=== PATIENT | female | born 1990 | race Caucasian/White ===

== ENCOUNTER 2022-03-30 15:15 | Outpatient (CLI) | payer OTHER, SELFPAY ==
[2022-03-30 17:13] LABS: Cholesterol* 134 mg/dL (90-199); HDL Cholesterol* 55 mg/dL (>=50); LDL Cholesterol Calculated 66 mg/dL (<100); Triglycerides* 65 mg/dL (40-149)
[2022-03-30 17:54] LABS: HCG Quantitative* < 2.39 mIU/mL
[2022-04-01 13:30] LABS: Estradiol Premenol Female 167 pg/mL
[2022-04-01 17:33] LABS: Prolactin 10.7 ng/mL (2.8-29.2)
[2022-04-01 19:19] LABS: Follicle Stimulating Hormone 2.1 IU/L; Luteinizing Hormone, Serum 6.9 IU/L
[2022-04-02 20:04] LABS: Anti-Mullerian Hormone 6.719 ng/mL (0.176-11.705)
[2022-04-06 21:28] LABS: 17-Hydroxyprogesterone HPLC 94.73 ng/dL (<=206.00); Progesterone, HPLC-MS/MS 7.46 ng/mL
[2022-04-07 13:10] LABS: Sex Hormone Binding Globulin 65 nmol/L (25-122); Testosterone Bioavailable 4.5 ng/dL (4.1-25.5); Testosterone, Free LC-MS/MS 1.6 pg/mL (1.3-9.2); Testosterone, LC-MS/MS 15 ng/dL (9-55)
== END 2022-03-30 15:16 | disposition home or self-care (01) ==
PROVIDERS: Visit Provider Obstetrics & Gynecology
DX: N93.9 Abnormal uterine and vaginal bleeding, unspecified (principal)
CPT/HCPCS: 80061; 82670; 83001; 83002; 83498; 83520; 84144; 84146; 84270; 84402; 84403; 84443; 84702

== ENCOUNTER 2023-05-24 09:45 | Outpatient (CLI) | payer OTHER, SELFPAY | END 2023-05-24 09:46 | disposition home or self-care (01) | PROVIDERS: Visit Provider Advanced Practice Midwife | DX: Z36.85 Encounter for antenatal screening for Streptococcus B (principal); Z34.83 Encounter for supervision of other normal pregnancy, third trimester | CPT/HCPCS: 87081; 87653 ==

== ENCOUNTER 2023-06-01 12:47 | Outpatient (CLI) | payer OTHER, SELFPAY ==
--- NOTE | 2023-06-01 12:52 | CRLHL7_ITS ---
For Patients: As a result of the Century Cures Act, medical imaging exams and procedure reports are released immediately into your electronic medical record. You may view this report before your referring provider. If you have questions, please contact your health care provider. INDICATION: Third trimester scan, evaluate growth. COMPARISON: none TECHNIQUE: Real time hatch scale imaging of the fetus was performed. FINDINGS: Sonographic imaging demonstrates a single living intrauterine gestation. Fetus demonstrates a regular cardiac rate of 147 beats per minute. Fetus has a vertex position. The placenta lies right anterior. Amniotic fluid volume appears normal and there is a single deepest vertical pocket: 7.7 cm. The estimated weight is 3530gm which lies at the 90th %. BPD 59th percentile. HC 78th percentile. AC greater than 97th percentile. FL 69th percentile. The HC/AC ratio measures 0.97 range (0.89-1.06). IMPRESSION: Sonographic gestational age 38 weeks 2 days and sonographic due date 06/13/2023. Sonographic age 9 days ahead of the clinical age. Estimated weight 90th percentile. Abdominal circumference greater than 97th percentile. Dictated by Nelson Jaramlilo MD @ 06/03/2023 2:44:06 PM (Electronically Signed)
== END 2023-06-01 12:48 | disposition home or self-care (01) ==
LOC: US 12:48
PROVIDERS: Visit Provider Advanced Practice Midwife
DX: Z34.93 Encounter for supervision of normal pregnancy, unspecified, third trimester (principal); Z3A.38 38 weeks gestation of pregnancy
CPT/HCPCS: 76816

== ENCOUNTER 2023-06-17 09:30 | Outpatient (CLI) | payer OTHER, SELFPAY ==
[2023-06-17 09:41] VITALS: PULSE 74; O2SAT 100
[2023-06-17 09:43] VITALS: BP 119/69; PULSE 74; TEMP 36.6
[2023-06-17 10:09] LABS: Amnisure Rom* Negative
--- NOTE | 2023-06-17 12:08 | PC.OBNST ---
NST Note NST Note Start: 06/17/23 09:37 Freq: ONCE Status: Complete Protocol: Document 06/17/23 10:49 RESTORATIONIST (Rec: 06/17/23 10:50 RESTORATIONIST [id number]) NST Note 4 Para (# of births) 2 EDC 06/17/23 Gestational Age In Weeks & Days 40 Weeks & 0 Days Patient Presented with Complaint(s) of Leaking fluid Reactive Yes Appropriate for Gestational Age Yes DOMINGA Blanco Date 06/17/23 Reactive Yes Appropriate for Gestational Age Yes DOMINGA Malik Date 06/17/23 OB NST charge Yes Complete NST Note via Write Note Yes The provider's electronic signature indicates the NST is reactive/appropriate for gestational age. *Note to provider: If an addendum is required, open the patient's chart and click on the note under the Nurse/Allied Health tab.
== END 2023-06-17 10:38 | disposition home or self-care (01) ==
LOC: OB 09:34 → OB OUT 09:34
PROVIDERS: Visit Provider Advanced Practice Midwife
DX: O47.1 False labor at or after 37 completed weeks of gestation (principal); Z3A.40 40 weeks gestation of pregnancy
CPT/HCPCS: 59025; 84112; 99213

== ENCOUNTER 2023-06-19 20:17 | Inpatient (IN) | payer OTHER, SELFPAY ==
[2023-06-19] VITALS (29 sets, daily range): BP systolic 106–138; BP diastolic 55–71; PULSE 57–98; TEMP 36.8; O2SAT 87–100; BMI 27.4
--- NOTE | 2023-06-19 21:04 | W.PM.LDBA ---
Subjective History of Present Illness Date Seen: 06/19/23 Narrative: Patient is being admitted to Labor and Delivery for active labor at term. She is a 32 year old at 39.4 weeks gestation. Her full history and physical was dictated by Radhika Ricci CNM on 05/31/23. Please see this for details. She has been genet since last night. The increase in intensity and frequency since she was seen in the clinic earlier today. On admit she was found to be 5-6/90/-1 per RN exam. She was admitted. She is using hypno birthing and coping well but considering an epidural due to nasal congestion. She denies leaking fluids and is appreciating good movement. Specific Issues/Plans : Nicho Transfer of care at 33 weeks from [facility] H&P done by Radhika Ricci CNM on 05/31/23 1. Covid in taking ASA Growth US at [facility]: 05/03/2023 EFW 76%ile, [facility] normal Growth US at 36 weeks: 90.4% 2. Hx of anxiety felt this was related to delivery during Covid shut down no meds, did do therapy at that time 3. Hypotension in 4. Measuring small for dates at 36.6 growth US ordered: 90.4% OB Labs: ? Blood type: AB+, antibody screen negative. ? Hgb: 12.9 (nob), 12.0 (28wks) ? Platelets: 238 (nob), 156 (28wks) ? Rubella: Immune ? Varicella: none in records, pt states previous illness RPR: non-reactive ? HBsAg: non-reactive ? Hep C: negative HIV: negative ? UC: negative GC/Chlamydia: negative/negative ? Pap (08/31/2022): NILM/-HPV ? Genetic screening: [id number] negative, female 1hr gtt: 100 ? ? IMAGING: ? 1st trimester: 7 wks 5 days, TERENCE 06/22/2023 ? Anatomy scan: Normal anatomy scan at 20.5 weeks ?Others: Growth US 05/03/23 EFW 76% TDAP: 04/02/2023 Flu Vaccine: 05/04/23 RSV: 05/18/2023 Covid Vaccine: Declines OB - Problem Based A/P Additional Plan (1) Pain during labor: Status: Acute (2) 39 weeks gestation of : Status: Acute Plan ASSESSMENT:? at 39.4 weeks gestation? GBS negative? Uncomplicated ? Active labor at term ?? PLAN:? 1. Considering water . Consent signed. Hep C negative.? 2. Candidate for analgesia of choice. Was planning unmedicated but now considering epidural.? 3. Anticipate ? 4. Expectant management at this time.? 5.0Insert IV for potential epidural analgesia per patient preference. 6. Intermittent auscultation. Switch to continuous monitoring if an epidural is placed. monitoring plan? Delivery/Labor/Induction Plan Plan: expectant management OB Result Labs Blood Type: AB (+) positive Rubella: immune RPR/VDLR: nonreactive GBS Status: negative HBsAG: negative OB Exam Physical Exam Vital signs: Pulse BP 59 L 121/71 06/19/23 20:00 06/19/23 20:00 Narrative: Psychiatric:? Alert and oriented x3? HEENT:? Normocephalic, atraumatic? Neck:? Supple without adenopathy or thyromegaly? Lungs:? Clear to auscultation bilaterally? Heart:? Regular rate and rhythm, no murmur, rub or gallop? Abdomen:? Soft, nontender, and gravid? Extremities:? No edema or erythema? Detailed Labor and Delivery Exam Patient Gravid: Yes Dilation (cm): 5 (5-6 per RN exam) Effacement (%): 90 Contraction Frequency: 2-7 Tachysystole: No Fetus (Single) Station: -1 Amniotic Membrane Status: intact Heart Rate Baseline: 120 Monitor Accelerations: Present Monitor Decelerations: None Nursing Home Variability: Moderate (6-25)
[2023-06-19] MEDS: LACTATED RINGERS 1000 ML 1,000 ML IV ×2 (21:06→22:09)
--- NOTE | 2023-06-19 22:26 | P.ANBPRC_ITS ---
PFSH PFS Medical History anxiety ?O99.345 - Other mental disorders complicating the puerperium (ICD-10) ?F41.8 - Other specified anxiety disorders (ICD-10) Abnormal uterine bleeding ?N93.9 - Abnormal uterine and vaginal bleeding, unspecified (ICD-10) Missed ab ?O02.1 - Missed (ICD-10) Surgical History History of dilation and curettage ?Z98.890 - Other specified postprocedural states (ICD-10) Family History Sister Diabetes Social History Narrative: SOCIAL? ? Education: Masters? ? Work: stay at home? ? Partner: Nicho, , Professor at [employer]? ? Lives with: Nicho, Gina-5, Kandi-3? ? Pets: no? ? Abuse: Denies past Safe at home with current partner ? ? ? Special Diet: Denies? ? Ok with a blood transfusion: yes? ? Culture or gnosticism beliefs: denies? RISK FACTORS? ? Exercise Times/wk: 3 times a week, program? ? Depression/Anxiety: PP? ? Previous Treatments NA ? Therapy yes, Covid during lat contributed FERNANDA: 2 PHQ 9: 3? ? Seat Belt Use: Routinely ? Smoking: Denies past/present? ? Alcohol/day: Denies while , when not one drink a week Caffeine: one cup coffee a day? ? Drug Use: Denies past/present? What is your current living situation?: I presently have a place to live Problems where you live: lead paint or pipes In the past 12 months, utilities in danger of being shut off: no In past 12 months, lack of transportation kept you from medical appts, meetings, work, or getting things needed for daily living: no In the past 12 mos, have been you worried that your food would run out before you had money to buy more?: never true In the past 12 mos, the food you bought just didn't last and you didn't have money to buy more?: never true Smoking Status: Never smoker How often does anyone, including family, friends and others, physically hurt you : never How often does anyone, including family, friends and others, insult or talk down to you: never How often does anyone, including family, friends and others, threaten you with harm: never How often does anyone, including family, friends and others, scream or curse at you: never Little interest or pleasure in doing things: not at all Feeling down, depressed, or hopeless: not at all Meds Home Medications and Allergies Home Medications Medication Instructions Recorded Confirmed Type docosahexaenoic acid 200 mg 200 mg PO DAILY PRN 05/04/23 06/19/23 History capsule ( DHA) magnesium 250 mg tablet 250 mg PO QDAY 05/04/23 06/19/23 History Allergies Allergy/AdvReac Type Severity Reaction Status Date / Time latex AdvReac Intermediate Verified 06/19/23 19:52 Penicillin AdvReac Intermediate Hives Uncoded 06/19/23 13:56 Results Vital Signs Vital Signs: Last Vital Signs Pulse 69 06/19/23 22:25 BP 112/55 L 06/19/23 22:25 Pulse Ox 100 06/19/23 22:19 Weight: 77.111 kg Height: 167.64 cm Anesthesia Procedures Intrathecal Patient Location: OB Start Time: 22:15 Stop Time: 22:26 Start Date: 06/19/23 Stop Date: 06/19/23 Reason for Block: procedure for pain Patient Position: sitting Performed By: Deangelo Felix Preanesthetic Checklist: IV checked, risks and benefits discussed, monitors and equipment checked, pre-op evaluation, timeout performed and anesthesia consent Prep: chlorhexidine gluconate Monitoring: blood pressure monitoring, continuous pulse oximetry and heart rate Approach: midline Vertebral Space: lumbar (1-5) Needle Type: Pencan Injection Technique: single-shot Needle gauge: 25 Needle Length (cm): 10 cm
[2023-06-19] MEDS: fentaNYL 100 MCG/2 ML inj 25 MCG INTRATHECA (22:29)
[2023-06-19] MEDS: OXYTOCIN 30 unit/500 ML in NS 30 UNIT/500 ML BAG 300 UNIT IVPB (23:02)
--- NOTE | 2023-06-19 23:30 | W.PM.VAGDE_ITS ---
OB Procedure Vag Delivery Mother Details Mother Details: The patient is a 32 year-old, 4, Para 2, admitted on 06/19/23 at 39.4 Days gestation. : 4 Para: 3 Weeks Gestation: 39.4 Admission Date: 06/19/23 Additional Details Amniotic Membrane Status: SROM Amniotic Membrane Rupture Date: 06/19/23 Amniotic Membrane Rupture Time: 22:31 Amniotic Membrane Fluid Description: Clear Analgesia/Anesthesia Type: Intrathecal Waterbirth: No Pitcoin: Yes ([facility] only) Intrapartal Events: None Labor Onset: 20:15 Complete: 22:31 Pushin:45 Heart: heart tones during second stage were category 2. Baseline 120, + accels, moderate variability. There was a decel with pushing for about 7 minutes until delivery to the 80's with increases to the 90-100's. There was very rapid descent of the fetus after pushing began until delivery. Position changes and attempts to relieve pressure on the head were attempted with some success. Delivery Details Delivery Date: 06/19/23 Delivery Time: 22:59 Route of delivery: Infant Gender: Female Infant Viability: Alive; Heart Rate Present Position at Delivery: OA Delivery Details: Patient was admitted for active labor and progressed normally. SROM noted at 2231 with clear fluid. Patient was complete at 2231 and pushing at 2245. of a viable female at 2259 in a left tilt in the bed. Vertex delivered OA. No nuchal cord or shoulder. Body delivered easily and without incident. p assed to mothers abdomen with a vigorous cry. Cord was clamped and cut at > 5 minutes. APGARS were 8 at one minute and 9 at five minutes respectively. Mouth was bulb suctioned. Intact placenta with a 3 vessel cord delivered spontaneously at 2306. Fundus firm. 1st degree identified and repaired in typical fashion. A discussion was had about wether or not to repair the laceration but it was oozing some blood so the decision was made to repair. QBL 250 cc. Mother and baby stable; mother plans to breastfeed. weight pending.? 1 Minute Interval Total Score: 8 5 Minute Interval Total Score: 9 Additional Details Shoulder Dystocia: No Placenta Delivery Time: 23:06 Placental Delivery Description: Spontaneous Delivery repair: Vicryl Procedure Done: Global Blood Loss: 250 Laceration: Perineal - 1st Degree Episiotomy Description: None Blood Loss Measurement Type: QBL Bakri Used: No Sponge/Need Count Correct: Yes Cord Vessel Description: 3 Vessels Event Summary Status: Mother and were stable after delivery. Disposition: floor
[2023-06-20] VITALS (11 sets, daily range): BP systolic 103–126; BP diastolic 57–71; PULSE 57–80; RESP 16–18; TEMP 36.5–36.7; O2SAT 95–97
--- NOTE | 2023-06-20 01:01 | PC.NURSE ---
Center telephone call greater than 37 weeks Date of call: [06/19/23] Time of call: [2006] Name of person calling: [Nicho Kelly (patient's )] Best phone # to reach you at: [] patient: G: [4] P: [2] EDC: [06/22/23] Gestational age: [39.4] weeks Provider: [Nohemy Norwood] Reason for calling (patient's words): [I have been timing my wifes contractions on an shakeel and they have been about 4.5 min a part and lasting for about a minute for the last hour. I am wondering if we should come in?] Instructed patient to come to center for further evaluation. If patient is calling with the following complaints, instructed to come to Center for evaluation: Feels like water broke: [no] Regular contractions that are 5 min apart: [yes] Bleeding that is bright red and similar to a menstrual period: [no] Decreased movement: [no] Temp >100.4: [no] Patient has a sense that something doesn't feel right: [no] Is patient having contractions: [no] Reviewed Signs of Labor: Uterine tightening or cramping that occurs at regular intervals. These typically occur at shorter and shorter intervals and may increase in intensity with time. Unlike Blencoe-Farris contractions, changes in activity should not make these symptoms go away. With true labor, the time between contractions will gradually shorten and the intensity gradually increases. Typical recommendation is coming to the hospital when contractions occur every 5 minutes or less and last for 60 seconds or more for 1 hour. If patient chooses to stay home, patient given comfort instructions and informed if symptoms stay the same or are worse after 1 hour come to Center. Comfort measures: Lie on left side, reset, drink bottle or large cup of water, monitor contractions for 1 hour. Patient verbalized understanding?: [yes] Is patient coming for evaluation?: [yes] Telephone conversation guided by approved policy and flow chart, Telephone Calls From Patient's, approved at [facility] perinatology Committee February 2023.
[2023-06-20] MEDS: IBUPROFEN 600 MG TABLET PO ×3 (01:46→14:54)
[2023-06-20] MEDS: ACETAMINOPHEN 500 MG TABLET 1000 MG PO ×3 (06:29→19:36)
--- NOTE | 2023-06-20 08:01 | PM.OBPNVD1 ---
OB - PN:Subj Subjective Time Seen by Provider: 08:01 Date Seen: 06/20/23 Interval history: Sherry is a 32 y.o. who was admitted to L & D for labor.? She had an uncomplicated NVD.? ? ? Narrative: The patient feels well.? The pain is well controlled with current medications.? She has no new complaints.? She is breast feeding and reports things are going well, though the baby is a little sleepy.? the patient has done well.? Vitals have been stable.? She has remained afebrile.? Has a good appetite, is tolerating a general diet.? She is voiding without difficulty.? She is not yet passing gas and has not had a bowel movement.? She is ambulating and denies any dizziness.? Has Small amount of rubra lochia.? OB - PN: Obj Exam Physical Exam: Vital signs: Temp Pulse Resp BP Pulse Ox O2 Del Method 97.8 F 72 16 116/70 95 Room Air 06/20/23 03:22 06/20/23 03:22 06/20/23 03:22 06/20/23 03:22 06/20/23 03:22 06/20/23 03:22 Narrative: GENERAL APPEARANCE:? normal affect, alert, no distress? MOOD:? appropriate? HEENT: normocephalic, neck supple, full ROM? CHEST:? Symmetrical chest wall movement.? Normal respiratory effort.? Clear to auscultation ? HEART:? regular rate and rhythm? ABDOMEN:? soft, non-tender. Uterine fundus is firm, at Umbilicus, Midline and is appropriate for the stage of recovery.? Bowel sounds present.? PERINEUM:? mild edema of the perineum, there is a 1st degree laceration that is healing well.? EXTREMITIES:? normal and trace edema? OB - PN: A/P Delivery Assessment and Plan (1) NVD (normal vaginal delivery): Status: Acute (2) state: Status: Acute (3) Lactating mother: Status: Acute Plan day: 1 Plan: routine care Comments: G 4 P 3 status post uncomplicated NVD? ?? 1.? Continue route PP cares? 2.? .? May see if desired? 3.? Anticipate discharge home tomorrow?
[2023-06-20] MEDS: DOCUSATE SODIUM 100 MG CAPSULE PO (08:47)
[2023-06-21 01:37] VITALS: BP 109/70; PULSE 67; RESP 16; TEMP 36.6; O2SAT 96
[2023-06-21] MEDS: IBUPROFEN 600 MG TABLET PO ×2 (01:41→09:39)
--- NOTE | 2023-06-21 07:31 | PM.OBDSVD1 ---
DS: Providers Provider Date Seen: 06/21/23 Date of admission: 06/19/23 20:17 Primary care physician: Not a Local Provider Admitting Clinician: Nohemy Norwood CNM Attending Physician on discharge: Toyin Miranda CNM DS: Diagnosis Discharge Diagnosis (1) care and examination immediately after delivery: Status: Acute (2) Lactating mother: Status: Acute Exam Narrative: Exam Narrative: GENERAL APPEARANCE:? normal affect, alert, no distress MOOD:? appropriate CHEST:? clear to auscultation HEART:? regular rate and rhythm ABDOMEN:? soft, non-tender the uterine fundus is at Umbilicus, Midline and is appropriate for the stage of recovery. PERINEUM:? mild edema of the perineum, there is a Perineal Laceration,?1st degree, that is healing well. EXTREMITIES:? normal and no edema Const: Vital Signs, click to edit/add: Vital Signs - 24 hr 06/20/23 08:30 06/20/23 11:34 06/20/23 19:17 Temperature 98.1 F 97.8 F 97.7 F Pulse Rate [Pulse Oximeter] 80 65 Respiratory Rate 16 16 18 Blood Pressure [Le ft Arm] 121/63 103/67 117/71 Pulse Oximetry 96 95 97 Oxygen Delivery Me thod Room Air Room Air Room Air 06/20/23 19:18 06/21/23 01:37 Temperature 97.7 F 97.9 F Pulse Rate [Pulse Oximeter] 77 67 Respiratory Rate 18 16 Blood Pressure [Le ft Arm] 111/68 109/70 Pulse Oximetry 96 96 Oxygen Delivery Me thod Room Air Room Air Documenting provider has reviewed patient's vital signs: yes OB - DS: Summary Hospital Course Hospital Course: Sherry is a 32 y.o. G 4 P 3013 who was admitted to L & D for spontaneous onset of labor. ?She had a NVD that was uncomplicated. The patient feels well. ?The pain is well controlled with current medications. ?She has no new complaints. ?She is breast feeding and reports things are going well. the patient has done well.? Vitals have been stable.? She has remained afebrile.? Has a good appetite, is tolerating a general diet. ?She is voiding without difficulty.? She is passing gas and has not had a bowel movement.? She is ambulating and denies any dizziness.? Has small amount of rubra lochia. Her only concern is about a bit of prolapse she has. Reviewed comfort measures and ways to allow to heal and avoid making it worse. Recommend pelvic floor PT, plan for referral at 2 weeks . Problems: None plan: Discharge home with baby. Follow up in 2 weeks and 6 weeks. , may see if needed Hgb 12.0. Peripartum Data delivery method: Vaginal Laceration description: Perineal - 1st Degree complications: none Infant Gender: Female Discharge Plan: Home Status at Discharge Functional status at discharge: independent ambulation Overall status at discharge: patient is progressing back to baseline Time Spent with Patient Time attestation: Total time spent providing and/or coordinating discharge services: Discharge Plan Discharge Disposition: Home, Self-Care Date of Admission: 06/19/23 20:17 Attending Provider on Discharge: Toyin Miranda Primary Care Provider: Provider,Not a Local Condition: Stable Anticipated Discharge Date/Time: 06/21/23 12:00 Discharge Medications: New acetaminophen 500 mg Tablet 1,000 mg PO Q6H PRNQty: 0 0RF docusate sodium 100 mg Capsule 100 mg PO DAILY Qty: 90 0RF ibuprofen 600 mg Tablet 600 mg PO Q6H PRNQty: 60 0RF Continued DHA 200 mg capsule 200 mg PO DAILY PRN magnesium 250 mg tablet 250 mg PO QDAY Discharge Orders: Discharge Order (Routine); Ordered 06/21/23 Ordered By: Toyin Miranda Patient Education: OB Over the Counter Medication Information, OB Vaginal/Breast Feeding Additional Instructions: Discharge instructions were reviewed with the patient including signs and symptoms of infection and home going medications Nothing vaginally for 6 weeks: no tampons or intercourse Off Work or School for 6 weeks 2-week visit: discuss feeding concerns, review control options and screen for anxiety/depression. 6-week visit for an annual exam. consultation services are available to all mothers and babies for the first year after delivery.? To make an appointment, please call [phone]. Activity Level: Activity as Tolerated Discharge Diet: Regular Follow Up Appointments: [facility] [Provider Group] Forms: Chalkboard Info Instructions
[2023-06-21 07:37] VITALS: BP 98/61; PULSE 68; RESP 16; O2SAT 96
[2023-06-21] MEDS: DOCUSATE SODIUM 100 MG CAPSULE PO (09:39)
== END 2023-06-21 13:30 | disposition home or self-care (01) | DRG 807 ==
LOC: OB OUT 20:18 → OB 20:18
PROVIDERS: Admitting Provider Advanced Practice Midwife; Visit Provider Advanced Practice Midwife
DX: O70.0 First degree perineal laceration during delivery (principal); Z37.0 Single live birth; Z3A.39 39 weeks gestation of pregnancy; R09.81 Nasal congestion
CPT/HCPCS: 01967; 36415; 85018; A9270; J2371; J3010; J7120

== ENCOUNTER 2023-09-11 09:15 | Outpatient (RCR) | payer OTHER, SELFPAY | END 2024-01-09 23:59 | disposition home or self-care (01) | PROVIDERS: Visit Provider Advanced Practice Midwife | DX: N81.9 Female genital prolapse, unspecified (principal); Z51.89 Encounter for other specified aftercare | CPT/HCPCS: 97110; 97140; 97162 ==

== ENCOUNTER 2024-11-26 12:27 | Emergency (ER) | payer BC, SELFPAY ==
--- OUTSIDE RECORDS SUMMARY | 2024-11-26 12:30 | XMS_ITS | Clinical Summary ---
Author Organization [facility] Address [address] [address] Phone Care Team Providers Care Executive Sales Assistant Name Role Phone Elsewhere, Pcp Primary Care Provider Unavailabl e Allergies Active Allergy Reactions Criticality Noted Date Comments Latex Unknown High 03/28/2022 Penicillin G Unknown High 03/28/2022 Medications Vit-Fe Fumarate-FA ( vitamin) Take 1 Tablet by mouth one time a day. Active Pyridoxine HCl (VITAMIN B-6 OR) Take by mouth. Active Doxylamine Succinate, Sleep, (UNISOM SLEEPTABS OR) Take by mouth. Active Docosahexaenoic Acid (DHA OMEGA 3 OR) Take by mouth. Active Social History Tobacco Use Types Packs/Day Years Used Date Smoking Tobacco: Never Smokeless Tobacco: Never Tobacco Cessation:Counseling Given: Not Answered Alcohol Use Standard Drinks/Week Comments Not Currently 0 (1 standard drink = 0.6 oz pur e alcohol) [facility] Custom IPV Answer Date Recorded Do you feel UNSAFE in any of your personal relationships with your family members or any other acquaintances? No 2022 Comments Unknown Sex and Gender Information Value Date Recorded Sex Assigned at Not on file Legal Sex Female 11:11 AM CDT Gender Identity Not on file Sexual Orientation Not on file Obstetrics History Para Term AB IAB SAB Ectopic Molar Multiple Living Live Births 1 Date Outcome GA Total Labor Labor/2nd/3rd Weight Sex Type Anes PTL Alicia A1 A5 Name Clin Last Filed Vital Signs Vital Sign Reading Time Taken Comments Blood Pressure 106/52 12/03/2022 10:33 AM CDT Pulse 66 12/03/2022 10:33 AM CDT Temperature 36.7 C (98.1 F) 12/03/2022 10:33 AM CDT Respiratory Rate 16 12/03/2022 10:33 AM CDT Oxygen Saturation 99% 12/03/2022 10:33 AM CDT Inhaled Oxygen Concentration - - Weight - - Height - - Body Mass Index - - Plan of Treatment Not on file Insurance [employer] Member Subscriber Plan / Payer (Ef fective 2019-Present) Name:Sherry Kelly Relation to Subscriber:Self Name:Sherry Kelly Payer ID:[id number] (NAIC) Type:[employer] Address: [address] [address] Care Teams Executive Sales Assistant Relationship Specialty Start Date End Date Elsewhere, Pcp PCP - General 12/03/22
--- OUTSIDE RECORDS SUMMARY | 2024-11-26 12:30 | XMS_ITS | Clinical Summary ---
Author Organization [facility] Address [address] [place] [address] Care Team Providers Care Engineering Technical Analyst Name Role Phone Heidy Brink MD Primary Care Provider [phone] Allergies Active Allergy Reactions Criticality Noted Date Comments Latex Hives High 10/20/2016 Penicillins Hives High 08/09/2015 Medications No known medications Active Problems Problem Noted Date Diagnosed Date History of dysplastic nevus 12/04/2017 Overview (09/07/2020): Moderately dysplastic nevus, left lateral chest, s/p biopsy 01/2016. Immunizations Immunization Administration Dates Next Due COVID-19 vaccine (Moderna 100mcg/0.5mL) SUSAN TENORIO 09/22/2020,08/25/2020 Influenza, IIV3 (Age 6-35 mos) 04/07/2016,2014 Influenza, IIV4 04/15/2020, 9,04/10/2018,2016 Tdap 06/30/2019,04/16/2017 Family History Medical History Relation Name Comments No Known Problems Father No Known Problems Mother Diabetes type I Sister Relation Name Status Comments Father Alive Mother Alive Sister Alive Social History Tobacco Use Types Packs/Day Years Used Date Smoking Tobacco: Never Smokeless Tobacco: Never Tobacco Cessation:Counseling Given: Yes Alcohol Use Standard Drinks/Week Comments Yes 2 (1 standard drink = 0.6 oz pur e alcohol) once a week PHQ-2 Answer Date Recorded PHQ-2 TOTAL SCORE 0 09/07/2020 Social Connections Answer Date Recorded Frequency of Communication with Friends and Fami ly Not on file 06/25/2021 Financial Resource Strain Answer Date R ecorded Difficulty of Paying Living Expenses Not on file 06/25/2021 Difficulty of Paying Living Expenses Not on file 06/25/2021 Comments No Sex and Gender Information Value Date Recorded Sex Assigned at Not on file Legal Sex Female 7:48 AM CDT Gender Identity Not on file Sexual Orientation Not on file Obstetrics History Para Term AB IAB SAB Ectopic Multiple Livin g Live Births 2 2 2 2 2 Date Outcome GA Total Labor Labor/2nd/3rd Weight Sex Type Anes PTL Alicia A1 A5 Name Clin 2017 Term 41w 2d 13h 30m 12h 18m/1h 02m/0h 10m 3.75 kg (8 lb 4.3 oz) F Vag-S pont N Livin g 8 9 MAXBAU ER,BAB YGIRL CAITLI N Opal Napoles nts ONLINE RETAILER, CNM Delivery Location:[facility] Comments:Gina 2019 Term 39w 1d 7h 39m 7h 09m/0h 21m/0h 09m 3.72 kg (8 lb 3.4 oz) F Vag-S pont Local N Livin g 8 9 MAXBAU ER,BAB YGIRL CAITLI N Katarzyna haurg ONLINE RETAILER, CNM Complications:None Delivery Location:[facility] ([facility]) Last Filed Vital Signs Vital Sign Reading Time Taken Comments Blood Pressure 106/66 01/07/2021 2:02 PM CDT Pulse 71 01/07/2021 2:02 PM CDT Temperature - - Respiratory Rate - - Oxygen Saturation 100% 01/07/2021 2:02 PM CDT Inhaled Oxygen Concentration - - Weight 55.4 kg (122 lb 3.2 oz) 01/07/2021 2:02 P M CDT Height 168.9 cm (5' 6.5) 09/07/2020 10:28 AM CD T Body Mass Index 19.43 09/07/2020 10:28 AM CDT Plan of Treatment Health Maintenance Due Date Last Done Comments HIV for age 15-65 10/07/2003 Hepatitis C screening for age 18-79 2006 Hepatitis B series for 19+ (1 of 3 - 19+ 3-dose series) 10/07/2007 BMI (ht and wt on same day) for age 18+ 09/07/2021 09/07/2020 Depression screening for age 12+ 09/08/2021 09/08/2020, 09/07/2020 COVID-19 vaccine series ( season) 2024 09/22/2020, 08/25/2020 Influenza Vaccine (Season Ended) 2025 04/15/2020, 03/26/2019, 04/10/2018, Additional history exists Pap test for age 21-65 09/07/2025 09/07/2020, 2020 Tetanus booster 06/30/2029 06/30/2019, 04/16/2017 Tdap Completed 06/30/2019, 04/16/2017 Pneumococcal series for age 6-49 Aged Out No longer eligible based on patient's age to complete this topic Procedures Procedure Name Priority Date/Time Associated Diagnosis Comments STAFF TECHNOLOGIST THIN PREP PAP SCREEN IMAGED Routine 09/07/2020 10:47 AM CDT Cervical cancer screening from Last 3 Months or Most Recently Relevant to Health Maintenance Results * STAFF TECHNOLOGIST THIN PREP PAP SCREEN IMAGED (09/07/2020 10:47 AM CDT) Case Report Gynecologic Cytology Report Case: [id number] Authorizing Provider: Heidy Brink MD Collected: 09/07/2020 1047 Ordering Location: [facility] Received: 09/07/2020 1113 Clinic First Screen: Abel Mccann Specimen: STAFF TECHNOLOGIST ThinPrep Vial Screening, Cervical 09/15/2020 11:50 AM CDT [facility] INTERPRETATION/ RESULT NEGATIVE FOR INTRAEPITHELIAL LESION OR MALIGNANCY (NIL) (none) 09/15/2020 11:50 AM CDT [facility] at 1150 CDT SPECIMEN ADEQUACY Satisfactory for evaluation Endocervical component present 09/15/2020 11:50 AM CDT [facility] HPV REQUEST HPV and PAP 09/15/2020 11:50 AM CDT [facility] Date of LMP breast feeding-- irregular period 09/15/2020 11:50 AM CDT [facility] Last Pap Date 07/10/16 09/15/2020 11:50 AM CDT [facility] Last Pap Result NIL 11:50 AM CDT [facility] Abnormal Pap or [place] Bx in last 5 years No 09/15/2020 11:50 AM CDT [facility] Menstrual Status Irregular Periods 09/15/2020 11:50 AM CDT [facility] [place] Bx Done Today No 09/15/2020 11:50 AM CDT [facility] Additional Information None given 09/15/2020 11:50 AM CDT [facility] Comment: Cytology is screened at [facility] - [address] [facility] [address], [place] [address] and [facility] - [address], [place] [address] and [facility] - [address] [place] [address] Interpreted at [facility] - [address], [place] [address] Automated Review Successful 09/15/2020 11:50 AM CDT [facility] Comment:Specimen processed s uccessfully by automated tack cutter device, ThinPrep Imaging System, [employer] ANCILLARY TESTING STAFF TECHNOLOGIST HPV Ordered, Please see separate report 09/15/2020 11:50 AM T [facility] Note The pap test is a screening technique, not a diagnostic procedure. It is used primarily to screen for squamous cancers and precursor lesions. Published studies have shown that it is subject to both false negative and false positive results. The pap test should not be used as the sole means to diagnose or exclude pre-malignant and malignant lesions. 09/15/2020 11:50 AM CDT [facility] Other (Cervical) Non-Blood / Unknown 09/07/2020 10:47 AM CDT 09/07/2020 11:13 AM CDT Heidy Brink MD PATHOLOGY/CYTOLOGY Final Re sult [facility] [address] [place] [address], from Last 3 Months or Most Recently Relevant to Health Maintenance Insurance [employer] Care Teams Engineering Technical Analyst Relationship Specialty Start Date End Date Heidy Brikn MD [address] [place] [address] PCP - General Family Practice 09/07/20
--- OUTSIDE RECORDS SUMMARY | 2024-11-26 12:30 | XMS_ITS | Clinical Summary ---
Author Organization [facility] Address [address] [place] [address] Care Team Providers Care Equipment Service Engineer Name Role Phone No Ref-Primary, Physician Primary Care Provider Allergies Active Allergy Reactions Criticality Noted Date Comments Penicillins Hives 12/03/2014 Medications ketotifen fumarate 0.035% 0.035 % SOLN ophthalmic solutionIndicati ons:Allergic conjunctivitis, bilateral Place 1 drop into both eyes 2 times daily 10 mL 3 Active fluticasone (FLONASE) 50 MCG/ACT nasal sprayIndications :Allergic rhinitis, unspecified seasonality, unspecified trigger [place] 1-2 sprays into both nostrils daily 16 g 3 Active mupirocin (BACTROBAN) 2 % external ointmentIndicati ons:Impetigo Apply topically 3 times daily 22 g 3 Active Social History Tobacco Use Types Packs/Day Years Used Date Smoking Tobacco: Never Smokeless Tobacco: Never Tobacco Cessation:Counseling Given: Not Answered Alcohol Use Standard Drinks/Week Comments Not Asked 0 (1 standard drink = 0.6 oz pur e alcohol) Adolescent Education Answer Date Record ed Getting School Help Needed Not on file 03/16 Comments No Sex and Gender Information Value Date Recorded Sex Assigned at Not on file Legal Sex Female 9:12 PM CDT Gender Identity Not on file Sexual Orientation Not on file Last Filed Vital Signs Vital Sign Reading Time Taken Comments Blood Pressure 99/64 05/26/2023 3:11 PM CAP LINING MACHINE OPERATOR Pulse 63 05/26/2023 3:11 PM CAP LINING MACHINE OPERATOR Temperature 36.4 C (97.5 F) 05/26/2023 3:11 PM CAP LINING MACHINE OPERATOR Respiratory Rate - - Oxygen Saturation 98% 05/26/2023 3:11 PM CAP LINING MACHINE OPERATOR Inhaled Oxygen Concentration - - Weight 56.7 kg (125 lb) 12/03/2014 9:27 PM CDT Height 167.6 cm (5' 6) 12/03/2014 9:27 PM CDT Body Mass Index 20.18 12/03/2014 9:27 PM CDT Plan of Treatment Health Maintenance Due Date Last Done Comments ADVANCE CARE PLANNING 1988 ANNUAL REVIEW OF HM ORDERS 1988 DIABETES SCREENING 1988 HEPATITIS B VACCINE (1 of 3 - 19+ 3-dose series) 10/07/2007 YEARLY PREVENTIVE VISIT 09/07/2021 09/08/19, 11/11/2018, 07/10/2016 COVID-19 VACCINE ( - season) 2024 05/10/2021, 09/22/2020, 08/25/2020 PHQ-2 (once per calendar year) 2024 INFLUENZA VACCINE (Season Ended) 2025 05/04/2023, 05/05/2022, 05/30/2021, Additional history exists PAP 08/31/2025 08/31/2022, 08/31/2022 DTAP/TDAP/TD VACCINE (4 - Td or Tdap) 04/02/2033 04/02/2023, 06/30/2019, 04/16/2017 ZOSTER VACCINE (1 of 2) 2038 HEPATITIS C SCREENING Completed 11/27/2022 HIV SCREENING Completed 11/27/2022 HPV VACCINE Aged Out No longer eligi ble based on patient's age to complete this topic MENINGITIS VACCINE Aged Out No longer eligible based on patient's age to complete this topic PNEUMOCOCCAL VACCINE: PEDIATRICS (0 to 5 YEARS) AND AT-RISK PATIENTS (6 to 49 YEARS) Aged Out No longer eligible based on patient's age to complete this topic Insurance [facility] Care Teams Equipment Service Engineer Relationship Specialty Start Date End Date No Ref-Primary, Physician PCP - General 11/15/22
--- OUTSIDE RECORDS SUMMARY | 2024-11-26 12:30 | XMS_ITS | Clinical Summary ---
[facility] Address [address] [place] [address] Care Team Providers Care Seismograph Operator Name Role Phone Needs Pcp, Assignment Primary Care Provider [phone] Source Comments You are receiving this document as you are listed as the primary care provider,follow-up provider, or the patient has been referred to you for consultation.This is in compliance with the Medicare and[facility] Cent[facility]aid EHR Incentive Program,which states Providers who transition their patient to another setting of careor provider of care or refers their patient to another provider of care shouldprovide summary care record for each transition of care or referral. [facility] Allergies Active Allergy Reactions Criticality Noted Date Comments Latex Hives,Itching,Rash High 10/20/2016 Penicillins Hives,Itching High 08/09/2015 Medications vitamin-ferrous fumarate-folic acid (PRENATALPLUS) 27-1 MG tablet Take 1 Tablet by mouth daily. Active omega-3 fatty acids (FISH OIL) 1000 MG capsule Take 2 Capsules (2,000 mg) by mouth. Active Active Problems Problem Noted Date Diagnosed Date Varicose veins of left lower extremity with comp lications 03/06/2024 Cardiac murmur 02/05/2023 Encounter for supervision of normal in multigravida 11/17/2022 Diarrhea 11/01/2022 Cervical cancer screening 10/03/2022 Overview (10/03/2022): [facility] Review: History: 06/2016: NILM 08/2020: NILM HPV neg 02/2021: [place] performed for 'postcoital bleeding', results neg 08/2022: NILM HPV neg Plan, per ASCCP guidelines: Co-test in 5 years (2027) Dysmenorrhea 09/01/2022 Irregular periods/menstrual cycles 10/21/2021 Anxiety 02/07/2021 History of dysplastic nevus 12/04/2017 Overview (12/04/2017): Moderately dysplastic nevus, left lateral chest, s/p biopsy 01/2016. Acne 08/09/2015 Major depressive disorder, single episode, moder ate Postcoital and contact bleeding Resolved Problems Problem Noted Date Diagnosed Date Resolved Date Encounter for supervision of normal in multigravida 07/15/2021 08/11/2021 Postcoital bleeding 03/11/2021 11/02/19 23 Overview (08/10/2021): Prior to - friable cervix Neg Colop Normal labor 09/10/2019 10/24/2019 (spontaneous vaginal delivery) 09/10/2019 10/24/2019 Supervision of other normal , antepartum 01/30/2019 10/24/2019 (spontaneous vaginal delivery) 07/11/2017 11/11/2018 Overview (07/11/2017): Baby girl Gina Thick meconium stained amniotic fluid 07/11/2017 11/11/2018 Second degree perineal lacer ation during delivery 07/11/2017 09/05/2017 Normal labor 07/10/2017 07/11/2017 Abnormal O'Boswell glucose challenge test, antepartum 04/30/2017 01/30/2019 Overview (04/30/2017): GTT WNL Decreased movements in third trimester 7 06/26/2017 Overview (04/11/2017): 28+2 weeks - reactive NST - seen in triage Normal , first 01/29/201710/24 Irregular menses 07/10/2016 03/18/2017 Immunizations Immunization Administration Dates Next Due Adult RSV Abrysvo 05/18/2023 Flu Vac Preserv Free (3+yrs) 04/07/2016,03/18/20 15 Influenza (Flucelvax), Prese rv Free QIV 05/30/2021 Influenza IIV4 (Quadrivalent ) 0.5mL (76623) 05/04/2023,05/05/2022,05/30/2021,2019,03/26/2019,04/10/2018,03/19/2017,1 ,03/18/2015 MMR 09/11/2019() Moderna Monovalent 12+ 05/10/2021,09/22/2020,08/2020 Tdap 04/02/2023,06/30/2019,04/16/2017 Family History Medical History Relation Name Comments Cancer Maternal Grandfather Diabetes Maternal Grandfather Heart Disease Maternal Grandmother Diabetes Sister Relation Name Status Comments Father Alive Mother Alive Brother Alive Maternal Grandfather Alive Maternal Grandmother Paternal Grandfather Alive Paternal Grandmother Alive Sister Alive Social History Tobacco Use Types Packs/Day Years Used Date Smoking Tobacco: Never Smokeless Tobacco: Never Tobacco Cessation:Counseling Given: Not Answered Alcohol Use Standard Drinks/Week Comments Not Currently 1 (1 standard drink = 0.6 oz pur e alcohol) occasional PHQ-2 Answer Date Recorded PHQ-2 Score 0 02/05/2023 Depression Answer Date Recor ded Last EPDS Total Score 1 08/02/2024 Last EPDS Self Harm Result Not on file 08/02 Comments No Sex and Gender Information Value Date Recorded Sex Assigned at Female 03/10/2021 8:54 PM CDT Legal Sex Female 8:02 AM CDT Gender Identity Female 03/10/2021 8:54 PM CDT Sexual Orientation Straight 03/10/2021 8: 54 PM CDT 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 Not on file Not on file 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[employer] Not on file Not on f ile Not on file Last Filed Vital Signs Vital Sign Reading Time Taken Comments Blood Pressure 98/61 04/14/2024 10:03 AM CDT Pulse 54 04/14/2024 10:03 AM CDT Temperature 36.8 C (98.2 F) 04/14/2024 9:17 AM CDT Respiratory Rate 18 04/14/2024 9:17 AM CDT Oxygen Saturation 100% 04/14/2024 10:03 AM CDT Inhaled Oxygen Concentration - - Weight 54 kg (119 lb) 04/03/2024 7:32 AM CDT Height 167.6 cm (5' 6) 04/03/2024 7:32 AM CDT Body Mass Index 19.21 04/03/2024 7:32 AM CDT Plan of Treatment Health Maintenance Due Date Last Done Comments HepB Vaccine (1) 10/07/2007 Adult Preventive Visit 11/11/2020 11/11/2018, 2016 COVID-19 Vaccine ( season) 2024 05/10/2021, 09/22/2020, 08/25/2020 Influenza Vaccine (Season Ended) 2025 05/04/2023, 05/05/2022, 05/30/2021, Additional history exists Cervical Cancer Screening 09/01/20272022, 08/31/2022, 03/11/2021, Additional history exists DTaP/Tdap/Td Vaccine (4 - Tdap) 04/02/2033 04/02/2023, 06/30/2019, 04/16/2017 Zoster/Shingles Vaccine (1 of 2) 2038 HIV Screening (Preventive Services) Completed 11/27/2022, 07/15/2021, 01/30/2019, Additional history exists Hep C Screening (Preventive Services) Completed 11/27/2022, 07/15/2021, 07/21/2019, Additional history exists HPV Vaccine Aged Out No longer eligi ble based on patient's age to complete this topic HepA Vaccine Aged Out No longer eligi ble based on patient's age to complete this topic Hib Vaccine Aged Out No longer eligi ble based on patient's age to complete this topic IPV (Polio) Vaccine Aged Out No longe r eligible based on patient's age to complete this topic MCV4 Vaccine Aged Out No longer eligi ble based on patient's age to complete this topic Meningococcal B Vaccine Aged Out No l onger eligible based on patient's age to complete this topic Pneumococcal Vaccine Aged Out No long er eligible based on patient's age to complete this topic Procedures Procedure Name Priority Date/Time Associated Diagnosis Comments HIV 1/2 AG/AB 4TH GEN Routine 11/27/2022 2:30 PM CDT Encounter for supervision of normal in multigravida HEPATITIS C ANTIBODY, WITH REFLEX (ANTI-HCV) Routine 11/27/2022 2:30 PM CDT Encounter for supervision of normal in multigravida CYTOLOGY (PAP) Routine 08/31/2022 11:[address] CONSULTANT Screening for malignant neoplasm of cervix from Last 3 Months or Most Recently Relevant to Health Maintenance Results * HIV 1/2 Ag/Ab 4th Generation (11/27/2022 2:30 PM CDT) HIV 1/2 Antigen/Antib [place] (4th generation) Negative (Non Reactive) Negative (Non Reactive) 11/27/2022 8:21 PM CDT [facility] Comment:HIV-1 p24 Antigen an d HIV-1/HIV-2 Antibody not detected Blood Venipuncture / Unknown 11/27/2022 2:30 PM CDT 11/27/2022 2:30 PM CDT us Marry Hammonds APRN, DEVON LAB_1 Fi nal Result [facility] [address] * Hepatitis C Antibody, with Reflex (11/27/2022 2:30 PM CDT) Hepatitis C Antibody Negative (Non Reactive) Negative (Non Reactive) 11/27/2022 8:21 PM CDT [facility] Comment:Antibodies to HCV no t detected. Does not exclude the possiblity of exposure to HCV. Blood Venipuncture / Unknown 11/27/2022 2:30 PM CDT 11/27/2022 2:30 PM CDT us Marry Juan Jose Hammonds VEST FINISHER, CNM LAB_1 Fi nal Result Performing Organization Address City/[facility]/ZIP Co de Phone Number [facility] [email or web address] * PAP Test (08/31/2022 11:[address]SULTANT) Case Report Pap Case: [id number] Authorizing Provider: Kaitlynn Haile MD Collected: 08/31/2022 1117 Ordering Location: [place] [address] Received: 08/31/2022 1408 Obstetrics/Gynec ology First Screen: Cristal Winchester Specimen: Pap Test, Routine, Cervix/Endocervix 09/22/2022 10:39 AM CDT [facility] Pap Specimen Adequacy Satisfactory for evaluation, endocervical/baker sformation zone component present. 09/22/2022 10:39 AM CDT [facility] Pap Interpretation (NILM) Negative for intraepithelial lesion or malignancy. 09/22/2022 10:39 AM CDT [facility] at 1038 CDT Pap Disclaimer The Pap test is a screening test designed to aid in the detection of cervical cancer and its precursor lesions. It is not a diagnostic procedure and should not be used as the sole means of detecting cervical cancer. Both false-positive and false-negative results may occur. 09/22/2022 10:39 AM CDT [facility] Gross Description The specimen is received in SurePath fixative and properly labeled. 1 Pap-stained SurePath slide is prepared. 09/22/2022 10:39 AM CDT [facility] Embedded Images 10:39 AM CDT [facility] Other Specimen Type ENTIRE ENDOCERVIX / Unknown 08/31/2022 11:[address] CONSULTANT 08/31/2022 2:[address] CONSULTANT Comment:LMP: Patient's last menstrual period was 08/13/2022 (exact date). Kaitlynn Haile MD LAB PATHOLOGY Final Result Performing Organization Address City/[facility] Co de Phone Number [facility] [address] [place] [address], [facility] from Last 3 Months or Most Recently Relevant to Health Maintenance Insurance [employer] SELF INSURED [employer] SEL[employer] Advance Directives * Full Code (Latest Code Status on File) Date Activated Date Inactivated Comments 04/14/2024 8:42 AM 04/14/2024 12:52 PM * Full Code Date Activated Date Inactivated Comments 08/11/2021 2:43 PM 08/11/2021 6:03 PM * Full Code Date Activated Date Inactivated Comments 09/10/2019 10:02 AM 09/11/2019 10:03 PM * Full Code Date Activated Date Inactivated Comments 07/10/2017 8:28 PM 07/12/2017 7:03 PM Care Teams Seismograph Operator Relationship Specialty Start Date End Date Needs Pcp, [place] [address] PCP - General 04/24/23
[2024-11-26 12:35] VITALS: BP 108/67; PULSE 66; RESP 16; TEMP 36.1; O2SAT 99; BMI 20.7
--- NOTE | 2024-11-26 12:45 | ED.GENADULT ---
HPI - General Adult General Chief complaint: Headache/Migraine Stated complaint: Migraine, nausea, difficulty speaking Time Seen by Provider: 11/26/24 12:28 History of Present Illness HPI narrative: Patient is a pleasant 34 year white female who has had a history of migraines presents with onset of fussy lines in her vision which is consistent with a migraine earlier today. Subsequently she got really tired and felt of abnormal sensation on her tongue had some numbness in the tips of her fingers bilaterally. She has not really had that before with migraines. She had a little slight headache but that is seems to be better, no nuchal rigidity, no thunderclap nature to the symptoms. She has been without fever, no chills. She has got 2 young children. Here with her is caring and attentive. Related Data Home Medications ?Medication ?Instructions ?Recorded ?Confirmed docosahexaenoic acid 200 mg 200 mg PO DAILY PRN 05/04/23 11/26/24 capsule ( DHA) magnesium 250 mg tablet 250 mg PO QDAY 05/04/23 11/26/24 Allergies Allergy/AdvReac Type Severity Reaction Status Date / Time Penicillins Allergy Mild Hives Verified 11/26/24 12:33 latex AdvReac Intermediate Verified 11/26/24 12:33 Review of Systems Status of ROS: Reports: 6 or more systems reviewed and unremarkable except as noted in History and below [facility] Medical History Migraine ?G43.909 - Migraine, unspecified, not intractable, without status migrainosus (ICD-10) anxiety ?O99.345 - Other mental disorders complicating the [place] (ICD-10) ?F41.8 - Other specified anxiety disorders (ICD-10) Abnormal uterine bleeding ?N93.9 - Abnormal uterine and vaginal bleeding, unspecified (ICD-10) Missed ab ?O02.1 - Missed (ICD-10) Surgical History NVD (normal vaginal delivery) ?O80 - Encounter for full-term uncomplicated delivery (ICD-10) History of dilation and curettage ?Z98.890 - Other specified postprocedural states (ICD-10) Family History Sister Diabetes Grandmother Heart disease Social History Narrative: SOCIAL? ? Education: Masters? ? Work: stay at home? ? Partner: Nicho, , Professor at [employer]? ? Lives with: Nicho, Gina-5, Kandi-3? ? Pets: no? ? Abuse: Denies past Safe at home with current partner ? ? ? Special Diet: Denies? ? Ok with a blood transfusion: yes? ? Culture or sikhism beliefs: denies? RISK FACTORS? ? Exercise Times/wk: 3 times a week, program? ? Depression/Anxiety: PP? ? Previous Treatments NA ? Therapy yes, Covid during lat contributed FERNANDA: 2 PHQ 9: 3? ? Seat Belt Use: Routinely ? Smoking: Denies past/present? ? Alcohol/day: Denies while , when not one drink a week Caffeine: one cup coffee a day? ? Drug Use: Denies past/present? What is your current living situation?: I presently have a place to live Problems where you live: lead paint or pipes In the past 12 months, utilities in danger of being shut off: no In past 12 months, lack of transportation kept you from medical appts, meetings, work, or getting things needed for daily living: no In the past 12 mos, have been you worried that your food would run out before you had money to buy more?: never true In the past 12 mos, the food you bought just didn't last and you didn't have money to buy more?: never true Smoking Status: Never smoker Do you use any of these nicotine containing products: None Second hand tobacco smoke exposure: No How often do you have a drink containing alcohol: never AUDIT-C Alcohol total score: 0 Non-prescribed substance use: denies use How often does anyone, including family, friends and others, physically hurt you: never How often does anyone, including family, friends and others, insult or talk down to you: never How often does anyone, including family, friends and others, threaten you with harm: never How often does anyone, including family, friends and others, scream or curse at you: never Health Related Social Needs: Inadequate housing (Z59.1) Exam Narrative: Exam Narrative: Objective: Patient's vital signs look within normal limits afebrile Alert or x3 No facial asymmetry pupils aggression light extraocular moves intact neck is supple full range of motion without tenderness Good crown blocker strength bilaterally able to move her legs fully, neurologically nonfocal. Const: Vital Signs, click to edit/add: Vital Signs - 24 hr 11/26/24 12:35 Temperature 97.0 F L Pulse Rate [Pulse Oximeter] 66 Respiratory Rate 16 Blood Pressure [Ri ght Upper Arm] 108/67 Pulse Oximetry 99 Oxygen Delivery Me thod Room Air Course Vital Signs Vital signs: Initial Vital Signs Temperature 97.0 F L 11/26/24 12:35 Temperature Source Temporal Artery Scan 11/26/24 12:35 Pulse Rate 66 11/26/24 12:35 Respiratory Rate 16 11/26/24 12:35 Blood Pressure 108/67 11/26/24 12:35 Blood Pressure Mean 80 11/26/24 12:35 Pulse Oximetry 99 11/26/24 12:35 Oxygen Delivery Method Room Air 11/26/24 12:35 Vital Signs Temperature 97.0 F L 11/26/24 12:35 Pulse Rate 66 11/26/24 12:35 Respiratory Rate 16 11/26/24 12:35 Blood Pressure 108/67 11/26/24 12:35 Pulse Oximetry 99 11/26/24 12:35 Oxygen Delivery Method Room Air 11/26/24 12:35 Temperature 97.0 F L 11/26/24 12:35 Pulse Rate 66 11/26/24 12:35 Respiratory Rate 16 11/26/24 12:35 Blood Pressure 108/67 11/26/24 12:35 Pulse Oximetry 99 11/26/24 12:35 Oxygen Delivery Method Room Air 11/26/24 12:35 Medications Administered Medications: Discontinued Medications Generic Name Dose Route Start Last Admin Trade Name Freq PRN Reason Stop Dose Admin Diphenhydramine HCl 50 mg 11/26/24 12:42 11/26/24 13:45 Diphenhydramine 50 Mg/Ml Inj IVP 11/26/24 12:43 50 mg ONCE ONE Administration Sodium Chloride 1,000 mls @ 6,000 mls/hr 11/26/24 12:45 11/26/24 13:45 0.9 % Sodium Chloride 1000 Ml IV 11/26/24 12:54 Infused .Q10M EVARISTO Infusion Sodium Chloride 1,000 mls @ 6,000 mls/hr 11/26/24 13:45 11/26/24 14:34 0.9 % Sodium Chloride 1000 Ml IV 11/26/24 13:54 Infused .Q10M EVARISTO Infusion Ketorolac Tromethamine 30 mg 11/26/24 12:42 11/26/24 13:45 Ketorolac 30 Mg/Ml Inj IVP 11/26/24 12:43 30 mg ONCE ONE Administration Metoclopramide HCl 10 mg 11/26/24 12:42 11/26/24 13:45 Metoclopramide Hcl 5 Mg/Ml Inj IVP 11/26/24 12:43 10 mg ONCE ONE Administration Medical Decision Making MDM Narrative Medical decision making narrative: [age] year white female with history of migraine headaches with migraine with some just slight slightly atypical features such as the tongue symptoms. This does not seem stroke-like to me it seems more like a migraine equivalent. She had wavy lines and had similar onset to prior migraines although she has not had 1 for a while. Given the lack of thunderclap nature to this I do not think it is a subarachnoid hemorrhage. I would recommend we treat with IV fluid. Will confirm that she is not before we give medications and will get a blood test, if this is negative will give her Toradol 30 mg IV, Benadryl 50 mg IV, and Reglan 10 mg IV. Will give her L saline and start that now. If she gets some slight improvement will order go home rest light activity and follow up with regular doctor as indicated. Addendum 2:08 p.m.: The patient got a L of fluid now will give her medicines that her test is negative if she sees some improvement let her go home and rest light activity follow up with regular doctor next 2-3 days. Addendum 2:44 p.m.: The patient brought up if she needs a CT scan or not. Given absence of projectile vomiting, signs of intracranial intracranial pressure, trauma. And given that the constellation of symptoms were very consistent with migraine I do not think that is necessary at this time, but we did offer that and with mutual decision making she elected to not pursue a CT scan at this time. If she continues to have symptoms or problems and I would recommend that be done. She can return for that. And she was comfortable this assessment and plan. Lab Data Labs: Lab Results 11/26/24 Range/Units 12:58 HCG, Qual Negative (Negative) Discharge Plan Discharge Clinical Impression: Headache, migraine Patient Disposition: Home w/ Parent or Adult Condition: Improved Instructions: Migraine Headache (ED) Activity Level: Light activity Discharge Diet: Regular Prescriptions: No Action DHA 200 mg capsule 200 mg PO DAILY PRN magnesium 250 mg tablet 250 mg PO QDAY Follow Up/Referrals: Nelson Jon MD [Staff Physician, Family Practice] Stand Alone Forms: [employer] Info Instructions
[2024-11-26] MEDS: 0.9 % SODIUM CHLORIDE 1000 ml 1,000 ML 6000 ML IV ×2 (12:58→13:45)
[2024-11-26 13:34] LABS: HCG Qualitative Serum* Negative (Negative)
[2024-11-26] MEDS: diphenhydrAMINE 50 MG/ML inj IVP (13:45)
[2024-11-26] MEDS: METOCLOPRAMIDE HCL 5 MG/ML INJ 10 MG IVP (13:45)
[2024-11-26] MEDS: KETOROLAC 30 MG/ML inj IVP (13:45)
== END 2024-11-26 14:50 | disposition home or self-care (01) ==
PROVIDERS: Emergency Provider Family Medicine
DX: G43.909 Migraine, unspecified, not intractable, without status migrainosus (principal)
CPT/HCPCS: 36415; 84703; 96374; 96375; 99284; J1200; J1885; J2765; J7030

== ENCOUNTER 2025-01-30 17:05 | Outpatient (CLI) | payer BC, SELFPAY | END 2025-01-30 17:06 | disposition home or self-care (01) | LOC: NFLDREF 02-05 03:59 | DX: N89.8 Other specified noninflammatory disorders of vagina (principal); N39.0 Urinary tract infection, site not specified | CPT/HCPCS: 87086 ==